=== PATIENT | female | born 1965 | race African-American/Black ===

== ENCOUNTER 2019-07-11 15:58 | Observation (INO) | payer SELFPAY ==
[~2019-07-11] VITALS: Ht 172.7 cm; Wt 63.5 kg
[~2019-07-11 15:58] MED LIST: CEPH-443 PO; IBUP-1542 PO
--- NOTE | 2019-07-11 16:26 | ERD ---
ER Documentation Chief Complaint Chief Complaint Pt bib RA 83 from home with c/o chest pain x 3 days HPI 53-year-old female history of anxiety, bipolar disorder not taking medications who presents to the emergency room with 2 to 3 days of chest pain. The patient describes momentary episodes of squeezing in her chest that lasts 2 to 3 seconds. This is about 50% of the time associated with exertion including going upstairs. Patient denies any associated symptoms including nausea diaphoresis shortness of breath or pleuritic discomfort. No chest pain currently. Full dose of aspirin given prior to arrival via EMS. Patient has no calf pain or swelling. She states no exacerbation of her underlying anxiety. ROS All systems reviewed and are negative except as per history of present illness. Allergies Allergies: Coded Allergies: No Known Allergy (Unverified , 07/11/19) PMhx/Soc Medical and Surgical Hx: pt denies Medical Hx, pt denies Surgical Hx Hx Alcohol Use: No Hx Substance Use: No Hx Tobacco Use: No Smoking Status: Never smoker FmHx Family History: No diabetes Physical Exam Vitals Vital Signs Date Temp Pulse Resp B/P (MAP) Pulse Ox O2 O2 Flow FiO2 Time Delivery Rate 07/11/19 98.3 91 16 131/97 98 16:04 (108) Physical Exam General: Well developed, well nourished, no acute distress Head: Normocephalic, atraumatic. Eyes: Pupils equally reactive, EOM intact ENT: Moist mucous membranes Neck: Supple, no lymphadenopathy Respiratory: Lungs clear bilaterally, no distress Cardiovascular: RRR, no murmurs, rubs, or gallops Abdominal: Soft, non-tender, non-distended, no peritoneal signs : Deferred MSK: No edema, no unilateral swelling, 5/5 strength Neurologic: Alert and oriented, moving all extremities, normal speech, no focal weakness, no cerebellar signs Skin: No rash Psych: Flat affect Result Diagram: 07/11/19 1607 07/11/19 1607 Results 24 hrs Laboratory Tests Test 07/11/19 16:07 White Blood Count 11.0 10^3/ul Red Blood Count 4.94 10^6/ul Hemoglobin 14.4 g/dl Hematocrit 42.5 % Mean Corpuscular Volume 86.0 fl Mean Corpuscular Hemoglobin 29.1 pg Mean Corpuscular Hemoglobin Concent 33.9 g/dl Red Cell Distribution Width 12.3 % Platelet Count 248 10^3/UL Mean Platelet Volume 9.4 fl Immature Granulocytes % 0.300 % Neutrophils % 74.3 % Lymphocytes % 16.2 % Monocytes % 8.7 % Eosinophils % 0.2 % Basophils % 0.3 % Nucleated Red Blood Cells % 0.0 /100WBC Immature Granulocytes # 0.030 10^3/ul Neutrophils # 8.2 10^3/ul Lymphocytes # 1.8 10^3/ul Monocytes # 1.0 10^3/ul Eosinophils # 0.0 10^3/ul Basophils # 0.0 10^3/ul Nucleated Red Blood Cells # 0.0 10^3/ul Sodium Level 139 mmol/L Potassium Level 3.4 mmol/L Chloride Level 103 mmol/L Carbon Dioxide Level 27 mmol/L Anion Gap 9 Blood Urea Nitrogen 3 mg/dl Creatinine 0.79 mg/dl Est Glomerular Filtrat Rate mL/min > 60 mL/min Glucose Level 136 mg/dl Calcium Level 9.9 mg/dl Troponin I < 0.012 ng/ml Procedures/MDM EKG, MONITORS, & DIAGNOSTIC IMAGING: EKG: I reviewed and interpreted a 12-lead EKG. Rhythm: Normal sinus rhythm ST Changes: No contiguous ST segment elevations T waves: No contiguous T wave inversions Impression: No evidence of acute cardiac ischemia Repeat EKG: EKG: I reviewed and interpreted a 12-lead EKG. Rhythm: Normal sinus rhythm ST Changes: No contiguous ST segment elevations T waves: No contiguous T wave inversions Impression: No evidence of acute cardiac ischemia Chest x-ray: I reviewed and interpreted a 1 view of the chest Mediastinum: No enlargement Cardiac silhouette: No cardiomegaly Airspace: Clear lung odom bilaterally without evidence of pneumothorax Bones: No evidence of fracture PROCEDURES: None LAB INTERPRETATION: * I reviewed laboratory testing otherwise normal, negative troponin MEDICAL DECISION MAKING: The patient's history, physical exam and clinical presentation is concerning for possible cardiogenic etiology and acute coronary syndrome. There could be some underlying psychiatric and social issues here but she states this feels differe nt. She has an exertional component which raises the concern for possible ACS. Based on the patient's clinical exam and history and risk factors, I have a much lower clinical concern for pulmonary embolism, acute aortic dissection, pneumothorax, pneumonia, cardiac tamponade HEART Score: 2 MACE Rate: 1.7% Shared Decision Making: We had a conversation regarding risk stratification, MACE rate, and the risks, benefits, alternatives of disposition planning options. Disposition planning: Patient prefers admission to discharge and PMD follow up. ER COURSE: * Patient remains chest pain-free. Troponin negative. * Patient prefers hospitalization CONSULTATION: None DISPOSITION PLAN: Telemetry admission for management of chest pain to rule out acute coronary syndrome, serial enzymes, risk stratification and consideration of provocative testing CONSULTATION: Accepting care team and consultations: I discussed the current laboratory data, diagnostic imaging and emergency care provided. Admitting team: Dr. Douglass Admitting team indication: Insurance directed Departure Diagnosis: Primary Impression: Chest pain Chest pain type: unspecified Qualified Codes: R07.9 - Chest pain, unspeci fied Condition: Stable STEPHANIE SAUL MD Jul 11, 2019 16:26
[2019-07-11] MEDS ORDERED: ACETAMINOPHEN 325 MG TAB PO PRN ×2 (17:30→18:30)
[2019-07-11] MEDS ORDERED: ONDANSETRON 4 MG INJ IV PRN ×2 (17:30→18:30)
[2019-07-11] MEDS ORDERED: POTASSIUM CHLORIDE (SR) 20 MEQ TAB PO STA (18:10)
[2019-07-11] MEDS ORDERED: NACL 0.9% 3 ML SYG IV SCH (18:30)
[2019-07-11] MEDS ORDERED: morphine 2 MG INJ IV PRN (18:30)
[2019-07-11] MEDS ORDERED: HYDROCODONE/APAP (5/325) TAB PO PRN (18:30)
--- NOTE | 2019-07-11 18:59 | HP ---
Date/Time of Note Date/Time of Note DATE: 07/11/19 TIME: 18:56 Assessment/Plan VTE Prophylaxis SCD applied (from Nsg): Yes Pharmacological prophylaxis: NA/contraindicated Pharm contraindication: low risk/ambulating Lines/Catheters IV Catheter Type (from Nrsg): Saline Lock Assessment/Plan Hospital Course 1. Atypical chest pain Pain is not reproducible with palpation but is atypical for ACS Patient has history of anxious affect and is the likely etiology Rule out ACS with troponins and echo Cardiology consultation obtained 2. Leukocytosis Patient denies any dysuria or frequency, chest x-ray is negative for infection Follow-up in UA Prophylaxis: SCDs Result Diagram: 07/11/19 1607 07/11/19 1607 Results 24hrs Laboratory Tests Test 07/11/19 16:07 White Blood Count 11.0 H Red Blood Count 4.94 Hemoglobin 14.4 Hematocrit 42.5 Mean Corpuscular Volume 86.0 Mean Corpuscular Hemoglobin 29.1 Mean Corpuscular Hemoglobin Concent 33.9 Red Cell Distribution Width 12.3 Platelet Count 248 Mean Platelet Volume 9.4 Immature Granulocytes % 0.300 Neutrophils % 74.3 Lymphocytes % 16.2 Monocytes % 8.7 Eosinophils % 0.2 Basophils % 0.3 Nucleated Red Blood Cells % 0.0 Immature Granulocytes # 0.030 Neutrophils # 8.2 H Lymphocytes # 1.8 Monocytes # 1.0 H Eosinophils # 0.0 Basophils # 0.0 Nucleated Red Blood Cells # 0.0 Sodium Level 139 Potassium Level 3.4 L Chloride Level 103 Carbon Dioxide Level 27 Anion Gap 9 Blood Urea Nitrogen 3 L Creatinine 0.79 Est Glomerular Filtrat Rate mL/min > 60 Glucose Level 136 Calcium Level 9.9 Troponin I < 0.012 HPI/ROS Admit Date/Time Admit Date/Time July 11, 2019 Hx of Present Illness Patient is a 53-year-old female with no significant medical history, patient presents with 3 days of chest pain, pain is exacerbated by movement and is described as a gnawing sensation. Patient denies any cardiac history, patient does report chronic stress secondary to being unemployed for the past 6 months. Patient has no prior history of chest pain, patient denies any nausea vomiting, dysuria, fever or chills. ROS Constitutional: no complaints, improved Eyes: no complaints ENT: no complaints Respiratory: no complaints Cardiovascular: chest pain Gastrointestinal: no complaints Genitourinary: no complaints Musculoskeletal: no complaints Skin: no complaints Neurologic: no complaints Endocrine: no complaints Lymphatic: no complaints Psychological: no complaints, nl mood/affect Immunologic: no complaints PMH/Family/Social Past Medical History Medical History: no pertinent history Medications Current Medications IV Flush (NS 3 ml) 3 ml PER PROTOCOL IV ; Start 07/11/19 at 18:30 Ondansetron HCl (Zofran Inj) 4 mg Q6H PRN IV NAUSEA/VOMITING; Start 07/11/19 at 18:30 Acetaminophen (Tylenol Tab) 650 mg Q6H PRN PO .PAIN 1-3 OR TEMP; Start 07/11/19 at 18:30 Acetaminophen/ Hydrocodone Bitart ([place] (5/325)) 1 tab Q6H PRN PO .MOD PAIN 4- 6; Start 07/11/19 at 18:30 Morphine Sulfate (morphine) 2 mg Q4H PRN IV .SEVERE PAIN 7-10; Start 07/11/19 at 18:30 Coded Allergies: No Known Allergy (Unverified , 07/11/19) Past Surgical History Past Surgical Hx: no surgical history Family History Significant Family History: no pertinent family hx Social History Alcohol Use: rarely Smoking Status: Never smoker Drug Use: none Exam/Review of Systems Vital Signs Vitals Vital Signs Date Temp Pulse Resp B/P (MAP) Pulse Ox O2 O2 Flow FiO2 Time Delivery Rate 07/11/19 81 18 128/87 99 Room Air 17:45 (101) 07/11/19 98.3 16:04 Exam Constitutional: alert, oriented Psych: anxiety Respiratory: clear to auscultation Cardiovascular: regular rate and rhythm Gastrointestinal: soft; No distended Musculoskeletal: nl extremities to inspection VOLODYMYR PULLIAM Jul 11, 2019 18:59
[2019-07-11 23:00] VITALS: BP 124/88; PULSE 94; RESP 18
[2019-07-12 00:28] VITALS: Ht 172.7 cm; Wt 63.5 kg
[2019-07-12 03:30] VITALS: BP 121/84; PULSE 94; RESP 18
[2019-07-12 07:11] VITALS: BP 125/79; PULSE 79; RESP 18
[2019-07-12] MEDS ORDERED: CEFTRIAXONE 1 GM/50 ML (PMX) 50 ML IVPB ONE (11:00)
[2019-07-12] MEDS ORDERED: MAGNESIUM OXIDE 400 MG TAB PO ONE (11:00)
[2019-07-12] MEDS ORDERED: POTASSIUM CHLORIDE 30 MEQ in SOD CHLORIDE 0.9% 1,000 ML IV SCH (11:00)
[2019-07-12 11:38] VITALS: BP 127/76; PULSE 82; RESP 17
--- NOTE | 2019-07-12 14:12 | PDOCDIS ---
Discharge Instructions CONDITION [id number] Patient Condition: [id number] Good HOME CARE INSTRUCTIONS: [id number] Diet Instructions: [id number] Regular ACTIVITY: [id number] Activity Restrictions: [id number] No Restrictions FOLLOW UP/APPOINTMENTS Follow-up Plan FOLLOW UP WITH YOUR PRIMARY CARE PHYSICIAN IN 1-2 WEEKS VOLODYMYR PULLIAM Jul 12, 2019 14:12
--- NOTE | 2019-07-12 14:17 | DS ---
Date/Time of Note Date/Time of Note DATE: 07/12/19 TIME: 14:12 Discharge Summary Admission/Discharge Info Admit Date/Time Jul 11, 2019 at 17:17 Discharge Date/Time July 12, 2019 Discharge Diagnosis 1. Atypical chest pain secondary to muscular pain ACS ruled out Pain is secondary to muscular pain, total CK is slightly elevated troponins are negative Muscle discomfort likely secondary to electrolyte deficiency and have replaced potassium and magnesium Patient also with anxious affect 2. Leukocytosis Patient denies any dysuria or frequency but UA is positive and has persistent leukocytosis Status post Rocephin IV, DC with Keflex Patient Condition: Good Hospital Course Patient is a 53-year-old female with no significant medical history, patient presents with 3 days of chest pain, pain is exacerbated by movement and is described as a gnawing sensation. ACS was ruled out with negative troponins, total CK was slightly elevated and hence patient's chest pain is likely muscular and related to anxiety as she had an anxious affect. Patient's total CK did trend down and she did receive IV fluids. Patient was noted to have persistent hypokalemia which was replaced and was given magnesium for the muscle pain. UA was suggestive of UTI and patient did have persistent leukocytosis, patient denied any dysuria but due to laboratory findings patient received Rocephin IV x1 and was prescribed Keflex upon DC. Patient's pain did significantly improve and was stable for DC, on the day of discharge patient's vitals, labs and his exam are stable. Home Meds Active Scripts Cephalexin* (Keflex*) 500 Mg Capsule, 500 MG PO BID for 3 Days, #6 CAP Prov:VOLODYMYR PULLIAM 07/12/19 Follow-up Plan FOLLOW UP WITH YOUR PRIMARY CARE PHYSICIAN IN 1-2 WEEKS Primary Care Provider Care Physician No Primary Time spent on discharge: > 30 minutes VOLODYMYR PULLIAM Jul 12, 2019 14:17
[2019-07-12 15:35] VITALS: BP 118/75; PULSE 93; RESP 18
--- NOTE | 2019-07-13 20:14 | RADRPT ---
Echocardiogram Report Patient Name: Rohith ARMSTRONGnt ID: [id number] : 1965 (53y 8m)Study Date: 07/12/2019 8:35:32 AM Gender: FAccession #: [id number] Tech: Alan Roa [facility] Location: [address] Ref.Physician: VOLODYMYR PULLIAM Height(Cm): BSA: Weight(Kg): Quality: AdequateOrder Physician: VOLODYMYR PULLIAM Account #: Procedures: Echocardiographic Report: Transthoracic echocardiogram with complete 2D, M-Mode, and doppler examination. Indications: Chest Pain. Measurements: 2D/M Mode Doppler Measurement Value Normal Range Measurement Value Normal Range LVIDd 2D 3.7 [ 3.8 - 5.2 ] cm AV Peak Aditya 1.5 [ 100.0 - 170.0 ] cm/sec LVIDs 2D 2.2 [ 2.2 - 3.5 ] cm AV Peak PG 9.0 [ 2.0 - 9.0 ] mmHg LVPWs 2D 0.7 cm LVOT Peak Aditya 1.0 [ 70.0 - 110.0 ] cm/sec IVSd 2D 0.8 [ 0.6 - 0.9 ] cm LVOT Peak PG 4.0 [ 2.0 - 6.0 ] mmHg IVS/LVPW 2D 1.1 ratio MV E Peak Aditya 0.7 [ 60.0 - 130.0 ] cm/sec AoR Diam 2D 2.5 [ 2.3 - 3.1 ] cm MV A Peak Aditya 0.5 [ 100.0 - 120.0 ] cm/sec LA/Ao 2D 1 ratio MV E/A 1.4 [ 0.8 - 1.5 ] ratio LA Dimen 2D 2.8 [ 2.7 - 3.8 ] cm MV Decel Time 165 [ 104 - 258 ] msec MV E/A 1.4 [ 0.8 - 1.5 ] ratio TR Peak Aditya 2.3 [ 100.0 - 280.0 ] cm/sec TR Peak PG 22.0 mmHg RVSP 25.0 [ 10.0 - 36.0 ] mmHg RA Pressure 3.0 mmHg Findings: Left Ventricle: Normal left ventricular systolic function. Normal left ventricular cavity size. Normal left ventricular wall thickness. Ejection fraction is visually estimated at 60 %. Tissue Doppler/Mitral Doppler indices are within normal limits. Right Ventricle: Normal right ventricular size. Normal right ventricular systolic function. Left Atrium: The left atrium is normal in size. Right Atrium: The right atrium is normal in size. Mitral Valve: Mild mitral leaflet calcification. Mild mitral annular calcification. Trace mitral regurgitation. Aortic Valve: Aortic sclerosis without significant stenosis. Left coronary cusp appears mildly calcified. Tricuspid Valve: Normal appearance of the tricuspid valve. The estimated Peak RVSP is 25 mmHg. There is trace tricuspid regurgitation. Pericardium: Normal pericardium with no significant pericardial effusion. Aorta: Normal aortic root. IVC: Normal size and normal respiratory collapse consistent with normal right atrial pressure. Conclusions: Normal left ventricular systolic function. Normal left ventricular cavity size. Normal left ventricular wall thickness. Ejection fraction is visually estimated at 60 %. Tissue Doppler/Mitral Doppler indices are within normal limits. Mild mitral leaflet calcification. Mild mitral annular calcification. Trace mitral regurgitation. Normal appearance of the tricuspid valve. The estimated Peak RVSP is 25 mmHg. There is trace tricuspid regurgitation. Electronically Signed By: Jurgen Kingsley 2019-07-13 20:14:31 PDT
== END 2019-07-12 18:09 | disposition home or self-care (01) ==
LOC: E/R 15:58 → 6WM 17:17
PROVIDERS: ADMIT Internal Medicine; ATTEND Internal Medicine
DX: R07.89 Other chest pain (principal); D72.829 Elevated white blood cell count, unspecified
CPT/HCPCS: 36415; 71045; 80048; 80061; 81001; 82550; 82553; 83036; 83735; 84100; 84436; 84479; 84484; 85025; 93005; 93306; 99285; G0378; J0696; J2270; J2405; J3480; J7030

== ENCOUNTER 2019-07-24 12:31 | Emergency (ER) | payer MEDICAID, OTHER ==
[~2019-07-24] VITALS: Wt 60.0 kg
[2019-07-24 17:12] VITALS: BP 137/77; PULSE 80; RESP 20
== END 2019-07-24 17:13 | disposition home or self-care (01) ==
LOC: E/R 12:31
DX: R10.9 Unspecified abdominal pain (principal); S90.822A Blister (nonthermal), left foot, initial encounter; S90.821A Blister (nonthermal), right foot, initial encounter; X50.3XXA Overexertion from repetitive movements, initial encounter; Y92.9 Unspecified place or not applicable; Z59.0 Homelessness
CPT/HCPCS: 99282

== ENCOUNTER 2019-08-01 11:03 | Emergency (ER) | payer MEDICAID ==
[~2019-08-01] VITALS: Ht 172.7 cm; Wt 61.4 kg
[~2019-08-01 11:03] MED LIST changes: -CEPH-443 PO
[2019-08-01 11:32] VITALS: BP 122/72; PULSE 82; RESP 20; Ht 172.7 cm; Wt 61.4 kg
== END 2019-08-01 13:16 | disposition home or self-care (01) ==
LOC: FTE 11:03
DX: M79.671 Pain in right foot (principal); M79.672 Pain in left foot
CPT/HCPCS: 99282